=== PATIENT | male | born 1965 | race Caucasian/White ===

== ENCOUNTER 2017-03-20 15:47 | Inpatient (IN) | payer OTHER ==
[~2017-03-20] VITALS: Ht 177.8 cm; Wt 101.0 kg
--- NOTE | 2017-03-25 15:20 | NUR ---
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 PATIENT DOES HAVE HIS D/C INSTRUCTIONS, A LIST OF HIS HOME MEDICATIONS AND HIS PRESCRIPTIONS FOR HIS NEW MEDICATIONS TO GET AT THE PHARMACY. PATIENT WAS VERY APPRECIATIVE OF THE CARE RECIEVED HERE IN THE ICU AND WANTED ME TO THANK EVERYONE THAT PARTICIPATED IN HIS CARE WHILE HE WAS HERE.
== END 2017-03-25 15:20 | disposition home or self-care (01) | DRG 897 ==
LOC: ER 15:47 → ICU 21:22
PROVIDERS: ADMIT Internal Medicine
DX: F10.231 Alcohol dependence with withdrawal delirium (principal); D61.818 Other pancytopenia; E87.0 Hyperosmolality and hypernatremia; I10 Essential (primary) hypertension; E83.42 Hypomagnesemia; E87.6 Hypokalemia; J44.9 Chronic obstructive pulmonary disease, unspecified; F17.210 Nicotine dependence, cigarettes, uncomplicated; E11.9 Type 2 diabetes mellitus without complications; K70.10 Alcoholic hepatitis without ascites; F41.9 Anxiety disorder, unspecified; F32.9 Major depressive disorder, single episode, unspecified; E86.0 Dehydration; I95.9 Hypotension, unspecified; I73.9 Peripheral vascular disease, unspecified; I65.29 Occlusion and stenosis of unspecified carotid artery; Z86.19 Personal history of other infectious and parasitic diseases; E03.9 Hypothyroidism, unspecified; E78.5 Hyperlipidemia, unspecified; G47.33 Obstructive sleep apnea (adult) (pediatric); Z87.11 Personal history of peptic ulcer disease; G89.29 Other chronic pain; M54.5 Low back pain; Z90.49 Acquired absence of other specified parts of digestive tract; Z79.02 Long term (current) use of antithrombotics/antiplatelets; Z79.84 Long term (current) use of oral hypoglycemic drugs; Z79.899 Other long term (current) drug therapy; Z88.0 Allergy status to penicillin; Z88.8 Allergy status to other drugs, medicaments and biological substances; Z80.42 Family history of malignant neoplasm of prostate; Z82.49 Family history of ischemic heart disease and other diseases of the circulatory system; Z81.8 Family history of other mental and behavioral disorders
CPT/HCPCS: 36415; 87502; 97162-GP; 97166; J1650; J2060; J3370; J7030; J7040; J7050; Q9963; Q9967

== ENCOUNTER 2017-03-20 15:47 | Emergency (ER) | payer OTHER | END 2017-03-20 21:21 | disposition admitted as inpatient to this hospital (09) | LOC: ER 15:47 | DX: R11.2 Nausea with vomiting, unspecified (principal); R19.7 Diarrhea, unspecified; R10.10 Upper abdominal pain, unspecified; R07.89 Other chest pain; F10.239 Alcohol dependence with withdrawal, unspecified; E87.2 Acidosis; E83.42 Hypomagnesemia; I47.1 Supraventricular tachycardia; I10 Essential (primary) hypertension; E11.9 Type 2 diabetes mellitus without complications; J44.9 Chronic obstructive pulmonary disease, unspecified; F17.210 Nicotine dependence, cigarettes, uncomplicated; E66.9 Obesity, unspecified; Z68.31 Body mass index [BMI] 31.0-31.9, adult; Z90.49 Acquired absence of other specified parts of digestive tract; Z96.651 Presence of right artificial knee joint; Z79.02 Long term (current) use of antithrombotics/antiplatelets; Z79.899 Other long term (current) drug therapy; Z88.0 Allergy status to penicillin; Z88.6 Allergy status to analgesic agent; Z79.4 Long term (current) use of insulin | CPT/HCPCS: 36415; 87502; 96361; 96365; 96366; 96367; 96368; 96375; 96376; J2060; J3370 ==